=== PATIENT | female | born 1975 | race African-American/Black ===

== ENCOUNTER 2017-07-25 22:23 | Emergency (ER) | payer MEDICAID ==
[~2017-07-25] VITALS: Ht 157.5 cm; Wt 59.9 kg
[2017-07-25 22:50] VITALS: BP 123/62
== END 2017-07-26 02:21 | disposition left against medical advice (07) ==
LOC: ER 22:23
DX: K13.79 Other lesions of oral mucosa (principal); Z76.0 Encounter for issue of repeat prescription; Z53.21 Procedure and treatment not carried out due to patient leaving prior to being seen by health care provider